=== PATIENT | male | born 1950 | race Caucasian/White ===

== ENCOUNTER 2023-09-17 06:50 | Observation (INO) | payer MEDICARE, SELFPAY ==
[2023-09-17] MEDS ORDERED: Ondansetron PF 4 MG/2 ML Vial ONE (07:19)
[2023-09-17] MEDS ORDERED: Aspirin 325 MG TAB ONE (07:58)
[2023-09-17] MEDS ORDERED: Labetalol HCl 100 MG/20 ML VIAL ONE (07:58)
[2023-09-17 08:08] LABS: #Basophils 0.03 10x3/uL (0.0-0.2); %Basophils 0.3 % (0.0-1.0); %Eosinophils 0.6 % (0.0-10.0); %Lymphocytes 11.6 % (21.0-51.0); %Monocytes 2.7 % (0.0-10.0); %Neutrophils 84.5 % (42.0-75.0); Hematocrit 45.6 % (42.0-52.0); Hemoglobin 15.4 g/dL (14.0-18.0); Mean Corpuscular HGB CONC 33.8 g/dL (32.0-36.0); Mean Corpuscular Hemoglobin 32.4 pg (27.0-31.0); Platelet Count 269 10x3/uL (130-400); RBC Distribution Width 13.3 % (11.5-14.5); Red Blood Cell (RBC) Count 4.75 mill/uL (4.70-6.10)
[2023-09-17 08:23] LABS: PTT 26.9 sec (22.9-36.1); Prothrombin Time 12.6 sec (12.0-14.7)
[2023-09-17 08:31] LABS: Acetaminophen Less than 10 mcg/mL (10.0-30.0); Alcohol Less than 10.0 mg/dL (Less than 10); Salicylate Less than 8.0 mg/dL (15.0-30.0)
[2023-09-17 08:33] LABS: Troponin I Less than 0.010 ng/mL (< 0.028)
[2023-09-17 08:34] LABS: Chloride 103 mmol/L (98-107); Potassium 3.5 mmol/L (3.5-5.1); Sodium 141 mmol/L (136-145)
[2023-09-17 08:37] LABS: ALT (SGPT) 47 U/L (8-55); AST (SGOT) 35 U/L (5-34); Albumin 4.9 g/dL (3.4-4.8); Alkaline Phosphatase 74 U/L (40-110); Anion Gap 15 mmol/L (10-20); BUN (Urea Nitrogen) 10 mg/dL (8.4-25.7); Bilirubin, Total 1.2 mg/dL (0.2-1.2); Calc. Creatinine Clearance 0 mL/min (70-130); Calcium 10.2 mg/dL (7.8-10.44); Carbon Dioxide 23 mmol/L (23-31); Estimated GFR 96; Globulin 3.2 g/dL (2.4-3.5); Glucose 131 mg/dL (83-110); Protein, Total 8.1 g/dL (5.8-8.1)
[2023-09-17 08:52] LABS: Amphetamine Not Detected (NotDetected); Barbiturates Screen Not Detected (NotDetected); Benzodiazepine Screen Not Detected (NotDetected); Cocaine Metabolite Screen Not Detected (NotDetected); Methadone Not Detected (NotDetected); Methamphetamine Not Detected (NotDetected); Opiate Screen Not Detected (NotDetected); Oxycodone Screen Not Detected (NotDetected); Phencyclidine (PCP) Not Detected (NotDetected); THC/Cannabinoid Screen Not Detected (NotDetected); Tricyclic Screen Not Detected (NotDetected)
[2023-09-17 09:14] LABS: Bacteria/HPF None Seen HPF (None Seen); Bilirubin Negative (Negative); Blood, Urine 1+ (Negative); CAUTI Indications for Culture Acute Hematuria; Clarity Clear (Clear); Glucose, Urine (Dipstick) 70 mg/dL (Negative); Ketone, Urine Trace mg/dL (Negative); Leukocyte Negative Leu/uL (Negative); Nitrite Negative (Negative); Protein, Urine (Dipstick) Negative (Neg-Trace); Specific Gravity, Urine 1.019 (1.002-1.036); Squamous Epithelial None Seen HPF (0-3); Urobilinogen Normal mg/dL (Less than 2); WBC/HPF 0-3 HPF (0-3)
[2023-09-17 09:16] LABS: Urine Culture Reflex No No
[2023-09-17] MEDS ORDERED: Acetaminophen 325 MG TAB PO PRN (09:22)
[2023-09-17] MEDS ORDERED: hydrALAZINE 20 MG/ML VIAL SLOW IVP PRN (09:22)
[2023-09-17] MEDS ORDERED: Iopamidol-370 76% 500 ML MDV (1 ML CHARGE) ONE (11:41)
[2023-09-17] MEDS ORDERED: Clopidogrel Bisulfate 75 MG TAB ONE (11:57)
[2023-09-17] MEDS ORDERED: Morphine 2 MG/ML VIAL ONE (11:57)
[2023-09-17] MEDS: Morphine 2 MG/ML VIAL SLOW IVP SCH (12:00)
[2023-09-17] MEDS: Clopidogrel Bisulfate 75 MG TAB PO SCH ×2 (12:02)
[2023-09-17 12:05] LABS: Troponin I Less than 0.010 ng/mL (< 0.028)
[2023-09-17 14:31] LABS: Troponin I Less than 0.010 ng/mL (< 0.028)
[2023-09-17 21:38] VITALS: BMI 26.8
[2023-09-17] MEDS: Rosuvastatin 20 MG TAB PO SCH (21:46)
[2023-09-17] MEDS: Famotidine 20 MG TAB PO SCH (21:46)
[2023-09-18 04:05] LABS: #Basophils 0.04 10x3/uL (0.0-0.2); %Basophils 0.4 % (0.0-1.0); %Eosinophils 1.1 % (0.0-10.0); %Lymphocytes 23.5 % (21.0-51.0); %Monocytes 8.5 % (0.0-10.0); %Neutrophils 66.3 % (42.0-75.0); Hematocrit 42.4 % (42.0-52.0); Hemoglobin 14.1 g/dL (14.0-18.0); Mean Corpuscular HGB CONC 33.3 g/dL (32.0-36.0); Mean Corpuscular Hemoglobin 31.9 pg (27.0-31.0); Mean Corpuscular Volume 95.9 fL (78.0-98.0); Mean Platelet Volume 9.1 fL (7.4-10.4); Platelet Count 223 10x3/uL (130-400); RBC Distribution Width 13.5 % (11.5-14.5); Red Blood Cell (RBC) Count 4.42 mill/uL (4.70-6.10)
[2023-09-18 04:36] LABS: Anion Gap 15 mmol/L (10-20); BUN (Urea Nitrogen) 14 mg/dL (8.4-25.7); Calc. Creatinine Clearance 102 mL/min (70-130); Calcium 9.5 mg/dL (7.8-10.44); Carbon Dioxide 21 mmol/L (23-31); Chloride 107 mmol/L (98-107); Cholesterol 141 mg/dl (< 200 Desired); Estimated GFR 96; Glucose 107 mg/dL (83-110); HDL Cholesterol 47 mg/dL (>60 Neg Risk); LDL Cholesterol, Calculated 77 mg/dL; Potassium 3.9 mmol/L (3.5-5.1); Sodium 139 mmol/L (136-145); Triglycerides 85 mg/dL (Less than 150)
[2023-09-18] MEDS: Enoxaparin 40 MG (0.4 mL) SYRINGE SC SCH (08:41)
[2023-09-18] MEDS: Aspirin 81 mg Enteric Coated Tablet PO SCH (08:43)
[2023-09-18 11:50] VITALS: BP 137/77; TEMP 97.4
== END 2023-09-18 13:41 | disposition home or self-care (01) ==
LOC: EDBD 06:50 → ERS 06:50 → ERHOLD 09:27 → 2SW 18:08
PROVIDERS: ADMIT Internal Medicine; ATTEND Family Medicine
PROC: B24BZZZ Ultrasonography of Heart with Aorta (ICD-10-PCS; principal; 2023-09-18)
DX: G45.9 Transient cerebral ischemic attack, unspecified (principal); I25.5 Ischemic cardiomyopathy; I25.2 Old myocardial infarction; I10 Essential (primary) hypertension; E78.5 Hyperlipidemia, unspecified; Z79.899 Other long term (current) drug therapy; Z95.810 Presence of automatic (implantable) cardiac defibrillator
CPT/HCPCS: 36415; 36416; 70450; 70496; 70498; 71045; 80048; 80053; 80061; 80306; 80307; 81001; 84443; 84484; 85025; 85610; 85730; 93005; 93306; 94760; 96372; 96374; 96375; G0378; J1650; J2272; J2405; Q9967

== ENCOUNTER 2023-12-17 11:15 | Inpatient (IN) | payer MEDICARE, SELFPAY ==
[~2023-12-17 11:15] MED LIST: Iopamidol 370 76% 100 ML VIAL ONE
[2023-12-17] MEDS ORDERED: Aspirin Chewable 81 MG TAB ONE (11:32)
[2023-12-17] MEDS ORDERED: Nitroglycerin 0.4 MG TAB 1 EACH ONE (11:34)
[2023-12-17] MEDS ORDERED: Nitroglycerin 2% Ointment 1 INCH/1 GM Packet ONE (11:35)
[2023-12-17 11:51] LABS: #Basophils 0.03 10x3/uL (0.0-0.2); %Basophils 0.3 % (0.0-1.0); %Eosinophils 0.6 % (0.0-10.0); %Lymphocytes 20.7 % (21.0-51.0); %Monocytes 6.3 % (0.0-10.0); %Neutrophils 71.8 % (42.0-75.0); Hematocrit 43.9 % (42.0-52.0); Hemoglobin 14.6 g/dL (14.0-18.0); Mean Corpuscular HGB CONC 33.3 g/dL (32.0-36.0); Mean Corpuscular Hemoglobin 32.6 pg (27.0-31.0); Mean Platelet Volume 9.1 fL (7.4-10.4); Platelet Count 267 10x3/uL (130-400); RBC Distribution Width 13.4 % (11.5-14.5); Red Blood Cell (RBC) Count 4.48 mill/uL (4.70-6.10)
[2023-12-17] MEDS ORDERED: Heparin 10,000 UNITS/ 10 ML VIAL ONE ×2 (11:53→11:55)
[2023-12-17] MEDS ORDERED: Heparin 25,000 UNITS/D5W 500 ml bag ONE (11:53)
[2023-12-17] MEDS ORDERED: Nitroglycerin 50 MG/250 ML BOT 0 ML ONE (11:55)
[2023-12-17] MEDS ORDERED: Atropine Sulfate 1 mg/10 ml Syringe ONE (11:56)
[2023-12-17] MEDS ORDERED: PHENYLEPHRINE-NS 100 MCG/ML 10 ML SYRINGE ONE (11:56)
[2023-12-17 12:06] LABS: ALT (SGPT) 45 U/L (8-55); AST (SGOT) 32 U/L (5-34); Albumin 4.1 g/dL (3.4-4.8); Alkaline Phosphatase 73 U/L (40-110); Anion Gap 14 mmol/L (10-20); BUN (Urea Nitrogen) 23 mg/dL (8.4-25.7); Bilirubin, Total 0.6 mg/dL (0.2-1.2); Calc. Creatinine Clearance 0 mL/min (70-130); Calcium 10.1 mg/dL (7.8-10.44); Carbon Dioxide 22 mmol/L (23-31); Chloride 107 mmol/L (98-107); Estimated GFR 94; Globulin 3.1 g/dL (2.4-3.5); Glucose 155 mg/dL (83-110); Potassium 3.8 mmol/L (3.5-5.1); Protein, Total 7.2 g/dL (5.8-8.1); Sodium 139 mmol/L (136-145)
[2023-12-17 12:09] LABS: Troponin I 0.072 ng/mL (< 0.028)
[2023-12-17] MEDS ORDERED: Midazolam HCl 2 mg/2 ml Vial ONE (12:13)
[2023-12-17] MEDS ORDERED: fentaNYL 50 mcg/mL 1 mL Vial ONE (12:13)
[2023-12-17] MEDS ORDERED: Lidocaine 1% (PF) 30 ML VIAL ONE (12:21)
[2023-12-17 12:33] LABS: INR-International Normal Ratio 0.9; Prothrombin Time 11.8 sec (12.0-14.7)
[2023-12-17 12:34] LABS: PTT 27.3 sec (22.9-36.1)
[2023-12-17] MEDS ORDERED: Nitroglycerin 0.4 MG TAB (25 Tab Bottle) SL PRN (13:17)
[2023-12-17 14:02] VITALS: BMI 27.1
[2023-12-17] MEDS: Losartan 25 MG TAB PO SCH (14:15)
[2023-12-17] MEDS: Sodium Chloride 0.9% 1,000 ML IV SCH (14:16)
[2023-12-17 18:21] LABS: Troponin I 0.434 ng/mL (< 0.028)
[2023-12-17] MEDS: Acetaminophen 325 MG TAB PO PRN (19:44)
[2023-12-17] MEDS: Rosuvastatin 20 MG TAB PO SCH (21:13)
[2023-12-17 22:57] LABS: Critical Call Chem Troponin I RESULT DECREASING; Troponin I 0.419 ng/mL (< 0.028)
[2023-12-18 03:30] LABS: #Basophils 0.03 10x3/uL (0.0-0.2); %Basophils 0.2 % (0.0-1.0); %Eosinophils 0.7 % (0.0-10.0); %Lymphocytes 18.7 % (21.0-51.0); %Monocytes 8.7 % (0.0-10.0); %Neutrophils 71.4 % (42.0-75.0); Hematocrit 38.6 % (42.0-52.0); Hemoglobin 12.9 g/dL (14.0-18.0); Mean Corpuscular HGB CONC 33.4 g/dL (32.0-36.0); Mean Corpuscular Hemoglobin 32.2 pg (27.0-31.0); Mean Corpuscular Volume 96.3 fL (78.0-98.0); Mean Platelet Volume 9.4 fL (7.4-10.4); Platelet Count 206 10x3/uL (130-400); RBC Distribution Width 13.3 % (11.5-14.5); Red Blood Cell (RBC) Count 4.01 mill/uL (4.70-6.10)
[2023-12-18 03:46] LABS: Hemoglobin A1c 5.3 % (4.0-6.0)
[2023-12-18 04:02] LABS: ALT (SGPT) 32 U/L (8-55); AST (SGOT) 22 U/L (5-34); Albumin 3.6 g/dL (3.4-4.8); Alkaline Phosphatase 62 U/L (40-110); Anion Gap 12 mmol/L (10-20); BUN (Urea Nitrogen) 14 mg/dL (8.4-25.7); Bilirubin, Total 1.3 mg/dL (0.2-1.2); Calc. Creatinine Clearance 114 mL/min (70-130); Carbon Dioxide 21 mmol/L (23-31); Cardiac Risk 4.4 (Less than 4.5); Chloride 107 mmol/L (98-107); Cholesterol 166 mg/dl (< 200 Desired); Estimated GFR 99; Globulin 2.4 g/dL (2.4-3.5); Glucose 99 mg/dL (83-110); HDL Cholesterol 38 mg/dL (>60 Neg Risk); LDL Cholesterol, Calculated 104 mg/dL; Sodium 137 mmol/L (136-145); Triglycerides 122 mg/dL (Less than 150)
[2023-12-18] MEDS: FLU (Fluad Triv) TS24-25 (65UP)/MF59C/PF 45 MCG/0.5 ML Syringe IM ONE (07:51)
[2023-12-18] MEDS: Potassium Chloride 20 MEQ TAB PO SCH (08:15)
[2023-12-18] MEDS: Clopidogrel Bisulfate 75 MG TAB PO SCH (08:16)
[2023-12-18] MEDS: Isosorbide Mononitrate 60 MG ER.TAB PO SCH (08:16)
[2023-12-18] MEDS: Ezetimibe 10 MG TAB PO SCH (08:16)
[2023-12-18] MEDS: Aspirin Chewable 81 MG TAB PO SCH (08:16)
[2023-12-18] MEDS: Losartan 25 MG TAB PO SCH (08:16)
[2023-12-18] MEDS: Sotalol HCl 80 MG TAB PO SCH (08:17)
[2023-12-18 08:29] LABS: Magnesium 1.8 mg/dL (1.6-2.6); Phosphorus 3.1 mg/dL (2.3-4.7)
[2023-12-18] MEDS: Morphine 2 MG/ML VIAL SLOW IVP PRN (21:17)
[2023-12-18 21:18] VITALS: BP 136/67
[2023-12-19 09:54] VITALS: TEMP 98.2
[2023-12-19] MEDS ORDERED: Isosorbide Mononitrate 60 MG ER.TAB PO SCH (21:00)
== END 2023-12-19 09:30 | disposition home or self-care (01) | DRG 287 ==
LOC: ERS 11:15 → CCU 13:23
PROVIDERS: ADMIT Internal Medicine Cardiovascular Disease; ATTEND Internal Medicine Cardiovascular Disease
PROC: 4A023N7 Measurement of Cardiac Sampling and Pressure, Left Heart, Percutaneous Approach (ICD-10-PCS; principal; 2023-12-17)
PROC: B2111ZZ Fluoroscopy of Multiple Coronary Arteries using Low Osmolar Contrast (ICD-10-PCS; 2023-12-17)
PROC: B2151ZZ Fluoroscopy of Left Heart using Low Osmolar Contrast (ICD-10-PCS; 2023-12-17)
DX: I25.10 Atherosclerotic heart disease of native coronary artery without angina pectoris (principal); I42.8 Other cardiomyopathies; I10 Essential (primary) hypertension; E78.00 Pure hypercholesterolemia, unspecified; Z87.891 Personal history of nicotine dependence; Z79.82 Long term (current) use of aspirin; Z79.899 Other long term (current) drug therapy; Z86.73 Personal history of transient ischemic attack (TIA), and cerebral infarction without residual deficits
CPT/HCPCS: 36415; 71045; 80053; 80061; 83036; 83735; 84100; 84484; 85025; 85347; 85610; 85730; 93005; 93010; 93458; 93798; 94760; 96374; 96376; 99152; 99153; C1769; C1887; C1894; J0461; J1644; J2250; J2272; J3010; J7030; Q9967